=== PATIENT | female | born 1975 | race Caucasian/White ===

== ENCOUNTER → 2016-06-28 | Outpatient (CLI) | payer OTHER ==
--- NOTE | 2016-06-29 07:48 | REP ---
Clinical: Renal colic. Technique: Two supine views of the abdomen and pelvis. Findings: The patient is status post gastric bypass surgery, cholecystectomy, and likely partial resection/anastomoses in the left mid abdomen. The bowel gas pattern is nonspecific. IUD identified in the pelvis. No organomegaly. No abnormal calcifications. No obvious nephroureterolithiasis. Skeletal structures intact. Impression: No obvious nephroureterolithiasis. Nonspecific bowel gas pattern. Signed by Yash Lima MD 06/29/2016 07:40 A
== END ==
LOC: M RAD 20:47
PROVIDERS: ATTEND Physician Assistant
DX: N23 Unspecified renal colic (principal)

== ENCOUNTER → 2016-07-21 | Outpatient (CLI) | payer OTHER ==
--- NOTE | 2016-07-21 08:15 | REP ---
Clinical: Abdominal pain. Comparison: CT dated 07/04/2016, ultrasound dated 12/12/2015. Findings: The liver demonstrates few scattered homogeneously hyperechoic foci primarily within the right lobe, and the largest of which measures 3.3 cm maximal diameter consistent with hemangioma and finding on recent CT. The patient is status post cholecystectomy. There is no biliary ductal dilatation and the common bile duct measures 4.5 mm diameter. The pancreas is incompletely evaluated due to interposed bowel gas. The right kidney is normal in reniform shape without hydronephrosis and measures 10.0 x 5.4 x 3.7 cm. No ascites in the visualized right upper quadrant. Visualized abdominal aorta normal. Impression: Few hepatic hemangiomas up to 3.3 cm in the posterior segment right lobe. Signed by Ysah Lima MD 07/21/2016 08:06 A
== END ==
LOC: M RAD 07:16
PROVIDERS: ATTEND Internal Medicine
DX: R10.12 Left upper quadrant pain (principal); R19.4 Change in bowel habit; D18.00 Hemangioma unspecified site

== ENCOUNTER → 2016-08-29 | Outpatient (CLI) | payer OTHER ==
[2016-08-29 13:52] LABS: CARCINOEMBRYONIC ANTIGEN 0.9 NG/ML (<2.5)
== END ==
LOC: M LAB 12:33
PROVIDERS: ATTEND Internal Medicine
DX: R93.2 Abnormal findings on diagnostic imaging of liver and biliary tract (principal)

== ENCOUNTER → 2016-10-16 | Outpatient (CLI) | payer OTHER ==
[2016-10-16 08:58] LABS: MEAN CORPUSCULAR HEMOGLOBIN 28.1 pg (27.0-33.0); MEAN CORPUSCULAR HGB CONC 33.4 g/dl (32.0-36.5); MEAN CORPUSCULAR VOLUME 84.2 fl (80.0-96.0); RED CELL DISTRIBUTION WIDTH 13.1 % (11.5-14.5); WHITE BLOOD COUNT 3.8 K/mm3 (4.0-10.0)
[2016-10-16 09:32] LABS: ALBUMIN 3.7 GM/DL (3.2-5.2); ALBUMIN/GLOBULIN RATIO 1.12 (1.00-1.93); ALKALINE PHOSPHATASE 73 U/L (45-117); ALT/SGPT 20 U/L (12-78); ANION GAP 8 MEQ/L (8-16); AST/SGOT 11 U/L (15-37); BILIRUBIN,TOTAL 0.4 MG/DL (0.2-1.0); BLOOD UREA NITROGEN 13 MG/DL (7-18); CALCIUM LEVEL 8.6 MG/DL (8.5-10.1); CARBON DIOXIDE LEVEL 28 MEQ/L (21-32); CHLORIDE LEVEL 109 MEQ/L (98-107); CHOLESTEROL LEVEL 201 MG/DL (<200); FERRITIN 3 NG/ML (8-252); GLOMERULAR FILTRATION RATE > 60.0 (>58); GLUCOSE, FASTING 83 MG/DL (70-105); PERCENT SATURATION 3.4 % (13.2-45.0); POTASSIUM SERUM 4.5 MEQ/L (3.5-5.1); SODIUM LEVEL 145 MEQ/L (136-145); TOTAL IRON BINDING CAPACITY 467 UG/DL (250-450); TRIGLYCERIDES LEVEL 62 MG/DL (<150)
[2016-10-16 10:20] LABS: VITAMIN B12 LEVEL > 2000 PG/ML (247-911)
== END ==
LOC: M LAB 07:56
PROVIDERS: ATTEND Nurse Practitioner
DX: K91.2 Postsurgical malabsorption, not elsewhere classified (principal); E55.9 Vitamin D deficiency, unspecified

== ENCOUNTER → 2017-03-30 | Outpatient (REF) | payer OTHER ==
[2017-03-30 17:19] LABS: BASO # 0.1 10^3/uL (0.0-0.2); BASO % 1.4 % (0.0-1.0); EOS # 0.1 10^3/uL (0.0-0.50); EOS % 1.8 % (0.0-3.0); HEMATOCRIT 26.4 % (36.0-47.0); IMMATURE GRANULOCYTE % 0.4 % (0-3.0); LYMPH # 1.8 10^3/uL (1.5-4.5); LYMPH % 31.9 % (24.0-44.0); MEAN CORPUSCULAR HEMOGLOBIN 22.4 pg (27.0-33.0); MEAN CORPUSCULAR HGB CONC 30.3 g/dl (32.0-36.5); MEAN CORPUSCULAR VOLUME 73.9 fl (80.0-96.0); MONO # 0.6 10^3/uL (0.0-0.8); MONO % 10.2 % (0.0-5.0); NEUTROPHILS # 3.1 10^3/uL (1.8-7.7); NEUTROPHILS % 54.3 % (36.0-66.0); PLATELET COUNT, AUTOMATED 334 10^3/uL (150-450); RED BLOOD COUNT 3.57 10^6/uL (4.00-5.40); RED CELL DISTRIBUTION WIDTH 15.5 % (11.5-14.5); WHITE BLOOD COUNT 5.7 10^3/uL (4.0-10.0)
[2017-03-30 17:59] LABS: FREE T4 0.95 NG/DL (0.76-1.46)
[2017-03-30 18:00] LABS: LUTEINIZING HORMONE 16.6 mIU/mL
== END ==
LOC: M SFHCWAGY 15:50
DX: R68.82 Decreased libido (principal); R61 Generalized hyperhidrosis

== ENCOUNTER → 2017-09-09 | Outpatient (CLI) | payer OTHER | LOC: M LRY 16:05 | DX: R10.13 Epigastric pain (principal) | CPT/HCPCS: 74021 ==

== ENCOUNTER → 2017-09-09 | Outpatient (REF) | payer OTHER ==
[2017-09-09 22:25] LABS: CHLAMYDIA DNA AMPLIFICATION NEGATIVE (NEGATIVE); GC DNA AMPLIFICATION NEGATIVE (NEGATIVE)
[2017-09-13 00:06] LABS: H PYLORI STOOL ANTIGEN Negative (Negative)
== END ==
LOC: M SFHCLERA 15:34
DX: R30.0 Dysuria (principal)

== ENCOUNTER → 2017-09-24 | Outpatient (REF) | payer OTHER ==
[2017-09-27 14:16] LABS: HPV HYBRID CAPTURE II Negative (Negative)
== END ==
LOC: M SFHCWAGY 11:47
DX: Z12.4 Encounter for screening for malignant neoplasm of cervix (principal)

== ENCOUNTER → 2017-09-26 | Outpatient (CLI) | payer OTHER | LOC: M WHC 11:36 | DX: Z12.31 Encounter for screening mammogram for malignant neoplasm of breast (principal); N60.31 Fibrosclerosis of right breast; N60.32 Fibrosclerosis of left breast | CPT/HCPCS: 77067 ==

== ENCOUNTER → 2018-09-26 | Outpatient (CLI) | payer OTHER ==
--- NOTE | 2018-09-26 13:58 | REPMRS ---
Patient History The patient states she had a clinical breast exam in 09/2018. Family history of prostate cancer at age 68 in father. Taking hormonal contraceptives for 22 years. Digital Woman Screen Mammo: September 26, 2018 - Exam #: [id number] Bilateral CC and MLO view(s) were taken. Technologist: Violette Griffin, Technologist Prior study comparison: September 26, 2017, bilateral digital woman screen mammo performed at [facility]. FINDINGS: The breast tissue is extremely dense which could obscure a lesion on mammography. There is an extremely dense symmetrical pattern of residual fibroglandular tissue. There has been no change in the appearance of the mammogram from the previous studies. There is no interval development of dominant mass, archetectural distortion, or grouped microcalcifications suggestive of malignancy. 3-D tomosynthesis shows no additional findings. Assessment: BI-RADS/ACR category 1 mammogram. Negative Mammogram. Recommendation Routine screening mammogram of both breasts in 1 year (for women over age 40). This patient's Lifetime Breast Cancer RIsk is estimated at 9.9 %. This mammogram was interpreted with the aid of an FDA-approved computer-aided dectection system. Electronically Signed By: Sonu Ambriz MD 09/26/18 [id number]
== END ==
LOC: M WHC 10:03
PROVIDERS: ATTEND Nurse Practitioner Women's Health
DX: Z12.31 Encounter for screening mammogram for malignant neoplasm of breast (principal)

== ENCOUNTER → 2018-12-24 | Outpatient (REF) | payer OTHER | LOC: M LAB REF 09:02 | PROVIDERS: ATTEND Physician Assistant | DX: R05 Cough (principal) ==

== ENCOUNTER → 2019-07-23 | Outpatient (REF) | payer OTHER | LOC: M LAB REF 15:47 | PROVIDERS: ATTEND Physician Assistant | DX: M54.5 Low back pain (principal) ==

== ENCOUNTER → 2020-05-18 | Outpatient (CLI) | payer OTHER ==
--- NOTE | 2020-05-18 09:44 | REPMRS ---
Patient History The patient states she had a clinical breast exam in May 2020. Family history of prostate cancer at age 68 in father. Taking hormonal contraceptives for 22 years. 3D TOMOSYNTHESIS WAS PERFORMED. [facility] 9.7%. Volmurphya breast density d. Digital Woman Screen Mammo: May 18, 2020 - Exam #: [id number] Bilateral CC and MLO view(s) were taken. Technologist: Kay Jones, Technologist Prior study comparison: September 26, 2018, bilateral digital woman screen mammo performed at [facility]. September 26, 2017, bilateral digital woman screen mammo performed at [facility]. FINDINGS: The breast tissue is extremely dense which could obscure a lesion on mammography. There has been no change in the appearance of the mammogram from the prior studies. There is a moderate amount of residual fibroglandular tissue which is fairly symmetric. There is no interval development of dominant mass, areas of architectural distortion, or clustered microcalcification typical of malignancy. No significant changes when compared with prior studies. Assessment: BI-RADS/ACR category 1 mammogram. Negative Mammogram. Recommendation Routine screening mammogram in 1 year (for women over age 40). This mammogram was interpreted with the aid of an FDA-approved computer-aided dectection system. Electronically Signed By: Jamar Gutierrez MD 05/18/20 0944
== END ==
LOC: M WHC 08:44
PROVIDERS: ATTEND Nurse Practitioner Women's Health
DX: Z12.31 Encounter for screening mammogram for malignant neoplasm of breast (principal); Z80.42 Family history of malignant neoplasm of prostate

== ENCOUNTER → 2020-05-18 | Outpatient (REF) | payer OTHER | LOC: M SFHCWAGY 13:56 | PROVIDERS: ATTEND Nurse Practitioner Women's Health | DX: Z12.4 Encounter for screening for malignant neoplasm of cervix (principal) ==

== ENCOUNTER → 2020-10-26 | Outpatient (CLI) | payer OTHER ==
[~2020-10-26] MED LIST: AMBI10TA PO; PAXI30TA11 PO
--- NOTE | 2020-10-26 20:21 | REPVR ---
PROCEDURE INFORMATION: Exam: MR Lumbar Spine Without Contrast Exam date and time: 10/26/2020 7:20 PM Age: 45 years old Clinical indication: Low back pain; Additional info: Lbp TECHNIQUE: Imaging protocol: Multiplanar magnetic resonance images of the lumbar spine without intravenous contrast. COMPARISON: CR ABDOMEN FLAT/UPRIGHT, PA CHEST 09/09/2017 4:18 PM FINDINGS: Vertebrae: Unremarkable. Spinal cord: Normal signal. No cord compression. L1-L2: No significant disc disease. No significant spinal canal stenosis. No neural foraminal stenosis. L2-L3: No significant disc disease. No significant spinal canal stenosis. No neural foraminal stenosis. L3-L4: No significant disc disease. No significant spinal canal stenosis. No neural foraminal stenosis. L4-L5: Diffusely bulging annulus L4-L5 with a small central disc protrusion effaces the ventral subarachnoid space resulting in a mild central spinal stenosis. There is mild bilateral facet joint arthropathy. L5-S1: Diffusely bulging annulus with a right posterolateral and foraminal disc protrusion at L5-S1 mildly effaces the right side of the thecal sac likely impinging on the exiting ipsilateral L5 nerve root. There is also moderate impingement on the right S1 nerve roots as they exit from the thecal sac. Modic type 2 endplate changes demonstrated. There is moderate bilateral foraminal stenosis. Soft tissues: Unremarkable. IMPRESSION: 1. Bulging annulus with right posterolateral and foraminal disc protrusion L5-S1 with likely impingement on the exiting ipsilateral L5 nerve root and S1 nerve roots as they exit from the thecal sac. 2. Bulging annulus L4-L5 resulting in a mild central spinal stenosis. Electronically signed by: Armando Patel On 10/26/2020 20:21:07 PM
== END ==
LOC: M RAD 18:01
PROVIDERS: ATTEND Nurse Practitioner Family
DX: M51.26 Other intervertebral disc displacement, lumbar region (principal); M48.061 Spinal stenosis, lumbar region without neurogenic claudication

== ENCOUNTER → 2021-08-31 | Outpatient (CLI) | payer OTHER, SELFPAY | LOC: M WHC 08-30 07:41 | PROVIDERS: ATTEND Plastic Surgery | DX: Z12.31 Encounter for screening mammogram for malignant neoplasm of breast (principal) ==

== ENCOUNTER → 2022-05-03 | Outpatient (REF) | payer OTHER ==
[~2022-05-03] MED LIST changes: +CHOL125C6 PO; -PAXI30TA11 PO; +PAXI30TA12 PO
== END ==
LOC: M SFHCWAGY 17:56
PROVIDERS: ATTEND Nurse Practitioner Family
DX: Z12.4 Encounter for screening for malignant neoplasm of cervix (principal)
CPT/HCPCS: 87624; G0123

== ENCOUNTER → 2022-09-13 | Outpatient (CLI) | payer OTHER | LOC: M WHC 14:39 | PROVIDERS: ATTEND Nurse Practitioner Family | DX: Z12.31 Encounter for screening mammogram for malignant neoplasm of breast (principal); Z80.42 Family history of malignant neoplasm of prostate; Z98.82 Breast implant status; N63.22 Unspecified lump in the left breast, upper inner quadrant; R92.8 Other abnormal and inconclusive findings on diagnostic imaging of breast ==

== ENCOUNTER → 2022-09-26 | Outpatient (CLI) | payer OTHER | LOC: M WHC 07:38 | PROVIDERS: ATTEND Nurse Practitioner Family | DX: Z12.31 Encounter for screening mammogram for malignant neoplasm of breast (principal) | CPT/HCPCS: 77065; G0279 ==

== ENCOUNTER → 2023-10-23 | Outpatient (CLI) | payer OTHER | LOC: M WHC 16:19 | PROVIDERS: ATTEND Nurse Practitioner Family | DX: Z12.31 Encounter for screening mammogram for malignant neoplasm of breast (principal); R92.333 Mammographic heterogeneous density, bilateral breasts ==

== ENCOUNTER → 2023-11-29 | Outpatient (CLI) | payer OTHER ==
[2023-11-29 17:30] LABS: HEMATOCRIT 37.4 % (36.0-47.0); HEMOGLOBIN 12.3 g/dl (12.0-15.5); MEAN CORPUSCULAR HEMOGLOBIN 29.9 pg (27.0-33.0); MEAN CORPUSCULAR HGB CONC 32.9 g/dl (32.0-36.5); MEAN CORPUSCULAR VOLUME 90.8 fl (80.0-96.0); PLATELET COUNT, AUTOMATED 237 10^3/uL (150-450); RED BLOOD COUNT 4.12 10^6/uL (4.00-5.40); WHITE BLOOD COUNT 6.2 10^3/uL (4.0-10.0)
[2023-11-29 18:05] LABS: ALBUMIN 3.6 G/DL (3.2-5.2); ALKALINE PHOSPHATASE 74 U/L (46-116); ALT/SGPT 16 U/L (7.0-40); AST/SGOT 11 U/L (<34); BILIRUBIN,TOTAL 0.6 MG/DL (0.3-1.2); BLOOD UREA NITROGEN 12 MG/DL (9-23); CALCIUM LEVEL 9.1 MG/DL (8.5-10.1); CARBON DIOXIDE LEVEL 28 MMOL/L (20-31); CHLORIDE LEVEL 108 MMOL/L (98-107); CREATININE FOR GFR 0.64 MG/DL (0.55-1.30); GLOMERULAR FILTRATION RATE > 60.0 (>58); GLUCOSE, FASTING 85 MG/DL (60-100); POTASSIUM SERUM 4.3 MMOL/L (3.5-5.1); SODIUM LEVEL 140 MMOL/L (136-145); TOTAL PROTEIN 6.7 G/DL (5.7-8.2)
== END ==
LOC: M LAB 16:55
PROVIDERS: ATTEND Plastic Surgery
DX: Z12.31 Encounter for screening mammogram for malignant neoplasm of breast (principal)